=== PATIENT | male | born 1970 | race Caucasian/White ===

== ENCOUNTER 2016-10-04 20:38 | Emergency (ER) | payer MEDICAID ==
[~2016-10-04] VITALS: Ht 165.1 cm; Wt 54.4 kg
[2016-10-04 21:00] VITALS: BP 92/53
[2016-10-04] MEDS ORDERED: NS 250 ML IV ONE (21:02)
[2016-10-04 21:48] VITALS: BP 114/65
[2016-10-04 22:03] LABS: BASOPHILS % (AUTO) 1.7 % (0.0-2.0); LYMPHOCYTES % (AUTO) 32.3 % (20.0-45.0); MEAN CORPUSCULAR HEMOGLOBIN 32.7 PG (27.0-31.0); MEAN CORPUSCULAR HGB CONC 33.4 G/DL (32.0-36.0); MEAN CORPUSCULAR VOLUME 98 FL (80-99); MEAN PLATELET VOLUME 6.8 FL (6.5-10.1); MONOCYTES % (AUTO) 12.5 % (1.0-10.0); NEUTROPHILS % (AUTO) 52.5 % (45.0-75.0); PLATELET COUNT 260 K/UL (150-450); RED CELL DISTRIBUTION WIDTH 15.9 % (11.6-14.8); WHITE BLOOD COUNT 6.8 K/UL (4.8-10.8)
[2016-10-04 22:14] LABS: TROPONIN I < 0.30 ng/mL (<=0.30)
--- NOTE | 2016-10-04 22:25 | Emergency Room Report ---
History of Present Illness General Chief Complaint: General Complaint Source: Patient Present Illness HPI 46-year-old male presents to ER for evaluation. Patient walked in stating he feels weak. Blood pressure is low. 70s over 40s. Patient states he had dialysis today. Normally gets dialysis Monday. Denies any chest pain or shortness of breath. States his blood pressure has dropped in the past because of dialysis. PMD is Dr. Rosario. No other aggravating or relieving factors. Denies any other associated symptoms Allergies: Coded Allergies: No Known Allergies (Unverified , 06/08/15) Patient History Past Medical History: DM, HTN, renal disease, dialysis Past Surgical History: none Pertinent Family History: none Social History: Denies: alcohol use, drug use, smoking Reviewed Nursing Documentation: PMH: Agreed, PSxH: Agreed Nursing Documentation-PMH Hx Cardiac Problems: No Hx Hypertension: Yes Hx Pacemaker: No Hx Asthma: No Hx COPD: No Hx Diabetes: Yes Hx Cancer: No Hx Gastrointestinal Problems: No Hx Dialysis: Yes - renal failure, monday, , monday Hx Neurological Problems: No Hx Cerebrovascular Accident: No Hx Seizures: No Review of Systems All Other Systems: negative except mentioned in HPI Physical Exam Vital Signs Date Time Temp Pulse Resp B/P Pulse Ox O2 Delivery O2 Flow Rate FiO2 10/04/16 20:47 98.1 77 16 77/42 99 Room Air Sp02 EP Interpretation: reviewed, normal General Appearance: no apparent distress, alert, GCS 15, non-toxic Head: normocephalic, atraumatic Eyes: bilateral eye PERRL, bilateral eye normal inspection ENT: hearing grossly normal, normal pharynx, no angioedema, normal voice Neck: full range of motion, supple/symm/no masses Respiratory: chest non-tender, lungs clear, normal breath sounds, speaking full sentences Cardiovascular #1: regular rate, rhythm, no edema Cardiovascular #2: 2+ carotid (R), 2+ carotid (L), 2+ radial (R), 2+ radial (L) , 2+ dorsalis pedis (R), 2+ dorsalis pedis (L) Gastrointestinal: normal bowel sounds, non tender, soft, non-distended, no guarding, no rebound Rectal: deferred Genitourinary: normal inspection, no CVA tenderness Musculoskeletal: back normal, gait/station normal, normal range of motion, non- tender Neurologic: alert, oriented x3, responsive, motor strength/tone normal, sensory intact, speech normal Psychiatric: judgement/insight normal, memory normal, mood/affect normal, no suicidal/homicidal ideation Reflexes: 3+ bicep (R), 3+ bicep (L), 3+ tricep (R), 3+ tricep (L), 3+ knee (R) , 3+ knee (L) Skin: normal color, no rash, warm/dry, well hydrated Lymphatic: no adenopathy Medical Decision Making Diagnostic Impression: Primary Impression: Hypotension of hemodialysis ER Course Hospital Course 46-year-old male presents ED complaining of weakness, hypotensive after dialysis today Differential diagnoses include: ACS/AL, CHF, hyperkalemia Clinical course Patient placed on stretcher. After initial history and physical I ordered labs , EKG, chest x-ray. given 250ml bolus labs reviewed- BUN/Cr elevated, K ok, troponins negative, no leukocytosis, hemoglobin/hematocrit stable EKG - peaked twaves, no other acute changes Chest x-ray-no cardiomegaly, no rib fracture, no pneumothorax, no acute process After to 50 mL bolus patient blood pressure improved. Patient states he feels better. Wishes to be discharged. Discussed with Dr. Landers (covering for Dr Dyer); agrees patient can be discharged home I. I feel this is a highly complex case requiring extensive working including EKG/Rhythm strip, Xray/CT/US, Blood/urine lab work, repeat exams while in ED, and administration of strong opiates/narcotics for pain control, admission to hospital or close patient follow up. Diagnosis - hypotension after dialysis Stable and discharged to home. Instructed to followup with PMD. Return to ED if symptoms recur or worsen Labs Test 10/04/16 21:00 White Blood Count 6.8 K/UL (4.8-10.8) Red Blood Count 3.60 M/UL (4.70-6.10) Hemoglobin 11.8 G/DL (14.2-18.0) Hematocrit 35.3 % (42.0-52.0) Mean Corpuscular Volume 98 FL (80-99) Mean Corpuscular Hemoglobin 32.7 PG (27.0-31.0) Mean Corpuscular Hemoglobin Concent 33.4 G/DL (32.0-36.0) Red Cell Distribution Width 15.9 % (11.6-14.8) Platelet Count 260 K/UL (150-450) Mean Platelet Volume 6.8 FL (6.5-10.1) Neutrophils (%) (Auto) 52.5 % (45.0-75.0) Lymphocytes (%) (Auto) 32.3 % (20.0-45.0) Monocytes (%) (Auto) 12.5 % (1.0-10.0) Eosinophils (%) (Auto) 1.0 % (0.0-3.0) Basophils (%) (Auto) 1.7 % (0.0-2.0) Sodium Level 141 mEQ/L (135-145) Potassium Level 4.1 mEQ/L (3.4-4.9) Chloride Level 94 mEQ/L (98-107) Carbon Dioxide Level 27 mEQ/L (20-30) Anion Gap 20 (5-15) Blood Urea Nitrogen 33 mg/dL (7-23) Creatinine 9.5 mg/dL (0.7-1.2) Estimat Glomerular Filtration Rate 6.0 mL/min (>60) Glucose Level 218 mg/dL (74-106) Calcium Level 7.4 mg/dL (8.6-10.2) Total Bilirubin 0.4 mg/dL (0.0-1.2) Aspartate Amino Transf (AST/SGOT) 13 U/L (5-40) Alanine Aminotransferase (ALT/SGPT) 14 U/L (3-41) Alkaline Phosphatase 166 U/L (40-129) Total Creatine Kinase 263 U/L (38-174) Creatine Kinase MB 8.5 ng/mL (< 6.7) Creatine Kinase MB Relative Index 3.2 Troponin I < 0.30 ng/mL (<=0.30) Pro-B-Type Natriuretic Peptide 4814 pg/mL (0-125) Total Protein 7.8 g/dL (6.6-8.7) Albumin 4.5 g/dL (3.5-5.2) Globulin 3.3 g/dL Albumin/Globulin Ratio 1.3 (1.0-2.7) EKG Diagnostic Results Rate: normal Rhythm: NSR, other ST Segments: other - peaked twaves in anterior leads ASA given to the pt in ED: No Rhythm Strip Diag. Results EP Interpretation: yes Rhythm: NSR, no PVC's, no ectopy Chest X-Ray Diagnostic Results Chest X-Ray Diagnostic Results : Chest X-Ray Ordered: Yes # of Views/Limited/Complete: 1 View Indication: Other - weakness EP Interpretation: Yes Interpretation: no consolidation, no effusion, no pneumothorax, no acute cardiopulmonary disease Impression: No acute disease Interpreting ER Provider: Electronically signed by Lio Llamas MD Last Vital Signs Date Time Temp Pulse Resp B/P Pulse Ox O2 Delivery O2 Flow Rate FiO2 10/04/16 21:48 98.1 79 18 114/65 98 Room Air Status: improved Disposition: HOME, SELF-CARE Condition: Stable Referrals: NOT CHOSEN NANCY/,REFERRING (PCP) LIO LLAMAS M.D. Oct 04, 2016 22:25
[2016-10-04 22:29] LABS: ALBUMIN/GLOBULIN RATIO 1.3 (1.0-2.7); CALCIUM 7.4 mg/dL (8.6-10.2); CREATININE 9.5 mg/dL (0.7-1.2); POTASSIUM 4.1 mEQ/L (3.4-4.9); TOTAL PROTEIN 7.8 g/dL (6.6-8.7)
[2016-10-04 22:40] LABS: CKMB 8.5 ng/mL (< 6.7)
[2016-10-04 23:30] VITALS: BP 128/64
--- NOTE | 2016-10-05 12:14 | Diagnostic Imaging Report ---
Indication: WEAK Technique: One view of the chest Comparison: none Findings: Lungs and pleural spaces are clear. Heart size is normal. Impression: No acute process This agrees with the preliminary interpretation provided by the emergency room physician
--- NOTE | 2016-10-05 15:42 | Cardiology Report ---
APPROVED REPORT EKG Measurement Heart [id number] Normal sinus rhythm Nonspecific T wave abnormality Prolonged QT Abnormal ECG
== END 2016-10-04 23:30 | disposition home or self-care (01) ==
LOC: EMR 21:05
DX: I95.9 Hypotension, unspecified (principal); I12.9 Hypertensive chronic kidney disease with stage 1 through stage 4 chronic kidney disease, or unspecified chronic kidney disease; E11.22 Type 2 diabetes mellitus with diabetic chronic kidney disease; N18.9 Chronic kidney disease, unspecified; Z99.2 Dependence on renal dialysis
CPT/HCPCS: 36415; 71010; 80053; 82550; 82553; 83880; 84484; 85025; 93005; 96360

== ENCOUNTER 2016-10-13 22:30 | Emergency (ER) | payer MEDICAID ==
[~2016-10-13] VITALS: Ht 165.1 cm; Wt 56.7 kg
[2016-10-13] MEDS ORDERED: LANTUS SOL100 UNIT/1 SUBQ (22:44)
[2016-10-14 00:05] VITALS: BP 91/55
--- NOTE | 2016-10-14 03:15 | Emergency Room Report ---
History of Present Illness General Chief Complaint: Dizziness Source: Patient Present Illness HPI Patient presents with complaints of dizziness He reports that he had a sensation this morning patient had dialysis approximately 5:00 in the morning in the dizziness began at approximately 7 in the morning Patient reports that recently has been having problems after his dialysis he is not sure if her taking too much fluid off Denies any headache denies any chest pain or shortness of breath At this time as are started to feel improved Denies any lightheadedness denies any vomiting or diarrhea Patient had his usual dialysis on Monday and Monday Allergies: Coded Allergies: No Known Allergies (Unverified , 06/08/15) Patient History Past Medical History: see triage record Pertinent Family History: none Reviewed Nursing Documentation: PMH: Agreed, PSxH: Agreed Nursing Documentation-PMH Past Medical History: No History, Except For Hx Cardiac Problems: No Hx Hypertension: No Hx Pacemaker: No Hx Asthma: No Hx COPD: No Hx Diabetes: Yes Hx Cancer: No Hx Gastrointestinal Problems: No Hx Dialysis: Yes - renal failure, monday, , monday History Of Psychiatric Problem: No Hx Neurological Problems: No Hx Cerebrovascular Accident: No Hx Seizures: No Review of Systems All Other Systems: negative except mentioned in HPI Physical Exam Vital Signs Date Time Temp Pulse Resp B/P (MAP) Pulse Ox O2 Delivery O2 Flow Rate FiO2 10/13/16 22:38 98.1 86 16 78/44 98 Room Air Sp02 EP Interpretation: reviewed, normal General Appearance: well appearing, no apparent distress Head: normocephalic, atraumatic Eyes: bilateral eye PERRL, bilateral eye EOMI ENT: hearing grossly normal, normal pharynx, TMs + canals normal, uvula midline Neck: full range of motion, supple, no meningismus, no bony tend Respiratory: lungs clear, normal breath sounds, no rhonchi, no respiratory distress, no retraction, no accessory muscle use Cardiovascular #1: normal peripheral pulses, regular rate, rhythm, no edema, no gallop, no JVD, no murmur Gastrointestinal: normal bowel sounds, non tender, soft, no mass, no organomegaly, non-distended, no guarding, no hernia, no pulsatile mass, no rebound Genitourinary: no CVA tenderness Musculoskeletal: normal inspection, other - AV shunt lef forearm Neurologic: oriented x3, responsive, mooner III-XII nml as tested, motor strength/ tone normal, sensory intact Psychiatric: mood/affect normal Skin: normal color, no rash, warm/dry, palpation normal Lymphatic: normal inspection, no adenopathy Medical Decision Making Diagnostic Impression: Primary Impression: Dizziness ER Course Patient is a fairly benign medical evaluation Blood pressures over 100 systolic patient is not tachycardic On the monitoring analyst patient continues to be sinus rhythm At this time patient has had fairly recent workup extensively with blood work and imaging At this time given the patient's presentation I did not feel these were required to be repeated After further observation patient has asked to go home and is able to follow closely Rhythm Strip Diag. Results EP Interpretation: yes Rate: 67 Rhythm: NSR, no PVC's, no ectopy Last Vital Signs Date Time Temp Pulse Resp B/P (MAP) Pulse Ox O2 Delivery O2 Flow Rate FiO2 10/14/16 00:05 98.1 78 19 91/55 96 Room Air Status: improved Disposition: HOME, SELF-CARE Condition: Improved Referrals: NON PHYSICIAN (PCP) Patient Instructions: Dizziness Additional Instructions: Patient is provided with the discharge instructions notified to follow up with primary doctor in the next 2-3 days otherwise return to the er with any worsening symptoms. Please note that this report is being documented using [employer] technology. This can lead to erroneous entry secondary to incorrect interpretation by the dictating instrument. LOU TAYLOR D.O. Oct 14, 2016 03:15
== END 2016-10-14 00:05 | disposition home or self-care (01) ==
LOC: EMR 23:05
DX: R42 Dizziness and giddiness (principal); E11.9 Type 2 diabetes mellitus without complications; N18.6 End stage renal disease; Z99.2 Dependence on renal dialysis
CPT/HCPCS: 93005; 99283

== ENCOUNTER 2016-10-16 01:23 | Emergency (ER) | payer MEDICARE, MEDICAID ==
[~2016-10-16] VITALS: Ht 165.1 cm; Wt 56.7 kg
[~2016-10-16 01:23] MED LIST: LANTUS SOL100 UNIT/1 SUBQ
[2016-10-16 01:40] VITALS: BP 108/66
--- NOTE | 2016-10-16 01:50 | Emergency Room Report ---
History of Present Illness General Chief Complaint: Dizziness Source: Patient Present Illness HPI Patient is a 46-year-old male who presented after having decreased blood pressure. Patient noted have prior history of end-stage renal disease and diabetes. The patient was noted to have had dialysis yesterday. She had not been having any fever. He had not been vomiting. He denies taking blood pressure medications. The patient had similar visits for after dialysis previously Allergies: Coded Allergies: No Known Allergies (Unverified , 06/08/15) Patient History Past Medical History: see triage record Reviewed Nursing Documentation: PMH: Agreed, PSxH: Agreed Nursing Documentation-PMH Past Medical History: No History, Except For Hx Cardiac Problems: No Hx Hypertension: No Hx Pacemaker: No Hx Asthma: No Hx COPD: No Hx Diabetes: Yes Hx Cancer: No Hx Gastrointestinal Problems: No Hx Dialysis: Yes - renal failure, monday, , monday Hx Neurological Problems: No Hx Cerebrovascular Accident: No Hx Seizures: No Review of Systems All Other Systems: negative except mentioned in HPI Physical Exam Vital Signs Date Time Temp Pulse Resp B/P (MAP) Pulse Ox O2 Delivery O2 Flow Rate FiO2 10/16/16 01:32 97.9 78 17 72/37 99 Room Air Sp02 EP Interpretation: reviewed, normal General Appearance: normal inspection, well appearing, no apparent distress, alert, GCS 15 Head: atraumatic ENT: normal ENT inspection, hearing grossly normal, normal voice Neck: normal inspection, full range of motion, supple, no bony tend Respiratory: normal inspection, lungs clear, normal breath sounds, no respiratory distress, no retraction, no wheezing Cardiovascular #1: regular rate, rhythm, no edema Gastrointestinal: normal inspection, normal bowel sounds, non tender, soft, no guarding, no hernia Genitourinary: no CVA tenderness Musculoskeletal: normal inspection, back normal, normal range of motion Neurologic: normal inspection, alert, oriented x3, responsive, set making machine operator III-XII nml as tested, speech normal Psychiatric: normal inspection, judgement/insight normal, mood/affect normal Skin: normal inspection, normal color, no rash Medical Decision Making Diagnostic Impression: Primary Impression: Hypotension of hemodialysis ER Course Patient presented for hypotension. Differential diagnoses included wasn't limited to pericardial effusion, volume depletion, sepsis, hyperkalemia among others. Because of complexity of patient's case laboratory testing and imaging studies were ordered.Laboratory studies are unremarkable except for mildly elevated potassium.. Patient was given IV fluids. Patient was noted to have elevation of his BUN/creatinine consistent with patient's history of renal disease status. The patient is advised to return if he began having increased dizziness or other concerns. Labs Test 10/16/16 01:55 White Blood Count 11.5 K/UL (4.8-10.8) Red Blood Count 4.24 M/UL (4.70-6.10) Hemoglobin 13.5 G/DL (14.2-18.0) Hematocrit 41.3 % (42.0-52.0) Mean Corpuscular Volume 97 FL (80-99) Mean Corpuscular Hemoglobin 32.0 PG (27.0-31.0) Mean Corpuscular Hemoglobin Concent 32.8 G/DL (32.0-36.0) Red Cell Distribution Width 14.4 % (11.6-14.8) Platelet Count 249 K/UL (150-450) Mean Platelet Volume 7.0 FL (6.5-10.1) Neutrophils (%) (Auto) 56.0 % (45.0-75.0) Lymphocytes (%) (Auto) 29.6 % (20.0-45.0) Monocytes (%) (Auto) 10.2 % (1.0-10.0) Eosinophils (%) (Auto) 2.4 % (0.0-3.0) Basophils (%) (Auto) 1.8 % (0.0-2.0) Sodium Level 136 mEQ/L (135-145) Potassium Level 5.2 mEQ/L (3.4-4.9) Chloride Level 94 mEQ/L (98-107) Carbon Dioxide Level 20 mEQ/L (20-30) Anion Gap 22 (5-15) Blood Urea Nitrogen 59 mg/dL (7-23) Creatinine 12.9 mg/dL (0.7-1.2) Estimat Glomerular Filtration Rate 4.2 mL/min (>60) Glucose Level 118 mg/dL (74-106) Calcium Level 7.8 mg/dL (8.6-10.2) Total Bilirubin 0.4 mg/dL (0.0-1.2) Aspartate Amino Transf (AST/SGOT) 12 U/L (5-40) Alanine Aminotransferase (ALT/SGPT) 16 U/L (3-41) Alkaline Phosphatase 180 U/L (40-129) Troponin I < 0.30 ng/mL (<=0.30) Total Protein 9.4 g/dL (6.6-8.7) Albumin 5.0 g/dL (3.5-5.2) Globulin 4.4 g/dL Albumin/Globulin Ratio 1.1 (1.0-2.7) Lipase 54 U/L (< 60) EKG Diagnostic Results Rate: normal Rhythm: NSR ST Segments: no acute changes Rhythm Strip Diag. Results EP Interpretation: yes Rhythm: NSR, no PVC's, no ectopy Last Vital Signs Date Time Temp Pulse Resp B/P (MAP) Pulse Ox O2 Delivery O2 Flow Rate FiO2 10/16/16 01:32 97.9 78 17 72/37 99 Room Air Status: improved Disposition: HOME, SELF-CARE Condition: Stable TanMagdy Oct 16, 2016 01:50
[2016-10-16 03:18] LABS: BASOPHILS % (AUTO) 1.8 % (0.0-2.0); EOSINOPHILS % (AUTO) 2.4 % (0.0-3.0); LYMPHOCYTES % (AUTO) 29.6 % (20.0-45.0); MEAN CORPUSCULAR HGB CONC 32.8 G/DL (32.0-36.0); MEAN CORPUSCULAR VOLUME 97 FL (80-99); MONOCYTES % (AUTO) 10.2 % (1.0-10.0); PLATELET COUNT 249 K/UL (150-450); RED BLOOD COUNT 4.24 M/UL (4.70-6.10); RED CELL DISTRIBUTION WIDTH 14.4 % (11.6-14.8); WHITE BLOOD COUNT 11.5 K/UL (4.8-10.8)
[2016-10-16 03:31] LABS: ALBUMIN/GLOBULIN RATIO 1.1 (1.0-2.7); CALCIUM 7.8 mg/dL (8.6-10.2); CREATININE 12.9 mg/dL (0.7-1.2); GLOMERULAR FILTRATION RATE 4.2 mL/min (>60); POTASSIUM 5.2 mEQ/L (3.4-4.9); TOTAL PROTEIN 9.4 g/dL (6.6-8.7); TROPONIN I < 0.30 ng/mL (<=0.30)
[2016-10-16 03:40] VITALS: BP 104/57
[2016-10-16 04:00] VITALS: BP 105/60
--- NOTE | 2016-10-17 19:43 | Cardiology Report ---
APPROVED REPORT EKG Measurement Heart [id number] Normal sinus rhythm Possible Left atrial enlargement Borderline ECG
== END 2016-10-16 04:00 | disposition home or self-care (01) ==
LOC: EMR 01:45
DX: I95.3 Hypotension of hemodialysis (principal); E11.22 Type 2 diabetes mellitus with diabetic chronic kidney disease; N18.6 End stage renal disease
CPT/HCPCS: 36415; 80053; 83690; 84484; 85025; 93005; 96360; 99284